=== PATIENT | female | born 1945 | race Caucasian/White ===

== ENCOUNTER 2022-01-20 14:52 | Outpatient (RCR) | payer OTHER, SELFPAY | END 2022-01-24 23:59 | disposition home or self-care (01) | LOC: CCIC 14:52 | PROVIDERS: PCP Family Medicine; Visit Provider Internal Medicine Hematology & Oncology | DX: C50.912 Malignant neoplasm of unspecified site of left female breast (principal); Z17.0 Estrogen receptor positive status [ER+]; R23.2 Flushing; T45.1X5A Adverse effect of antineoplastic and immunosuppressive drugs, initial encounter; M81.0 Age-related osteoporosis without current pathological fracture | CPT/HCPCS: 99212; 99213; 99214 ==

== ENCOUNTER 2022-02-01 12:08 | Emergency (ER) | payer OTHER, SELFPAY ==
[2022-02-01 12:22] VITALS: BP 155/64; PULSE 85; RESP 18; TEMP 36.9; O2SAT 98; BMI 20.6
--- NOTE | 2022-02-01 13:41 | ED_ITS ---
HPI - General Adult General Chief complaint: Fall/Minor Trauma Stated complaint: Fell underneath , back pain Time Seen by Provider: 02/01/22 12:32 Source: patient Mode of arrival: ambulatory Limitations: no limitations History of Present Illness HPI narrative: 76-year-old female coming in today after her fainted and fell on her. She states that she fell onto her buttocks onto the kitchen floor and hit her back against the kitchen cabinet. She did not hit her head or lose consciousness. She was able to get up after she fell. She was however having right-sided low back pain. She denies any loss of bowel or bladder function. She denies any neurologic deficits. She did not trip or fall after she got up. She took some Tylenol and is now feeling better. Related Data Home Medications Medication Instructions Recorded Confirmed acetaminophen 325 mg tablet 650 mg PO Q6H PRN 01/20/22 01/20/22 (Tylenol) alendronate 70 mg tablet 70 mg PO QWEEK 01/20/22 01/20/22 aspirin 81 mg capsule 81 mg PO QDAY 01/20/22 01/20/22 atorvastatin 40 mg tablet 40 mg PO QPM 01/20/22 01/20/22 clonidine HCl 0.1 mg tablet 0.1 mg PO DAILY 01/20/22 01/20/22 lisinopril 40 mg tablet 40 mg PO QDAY 01/20/22 01/20/22 tamoxifen 20 mg tablet 20 mg PO QDAY 01/20/22 01/20/22 Allergies Allergy/AdvReac Type Severity Reaction Status Date / Time seasonal AdvReac Mild Uncoded 02/01/22 12:21 Review of Systems Status of ROS: Reports: 10 or more systems reviewed and unremarkable except as noted in History and below [facility] Medical History HTN (hypertension) Invasive ductal carcinoma of left breast in female (~04/2017) Osteoporosis Surgical History S/P lumpectomy, left breast Exam Narrative: Exam Narrative: Well-nourished well-developed patient in no acute distress. Alert and oriented. Answers questions appropriately. Mood and affect are appropriate. Thoughts are goal oriented and rational. No tangential or magical thinking noted. Patient speaks in full sentences without needing to catch their breath. HEENT: Normocephalic atraumatic. Pupils are equally round reactive to light. Extraocular muscles are intact. Conjunctivae are moist without any icterus noted. Moist mucous membranes. Posterior pharynx is normal. Neck is soft without any lymphadenopathy or thyromegaly. Cardiovascular: Heart is regular rate and rhythm S1 and S2 are present without any murmurs. Lungs: Clear to auscultation bilaterally no wheezes rhonchi or rales are appreciated. Patient takes deep breaths without any discomfort. Abdomen: Soft and nontender nondistended with normal bowel sounds. Extremities: Bilateral lower extremities are without edema. Normal DP and PT pulses. Skin: Well perfused without any obvious rashes. Back: Normal appearance. She has no tenderness to palpation over the cervical thoracic or lumbar spine. She has some tenderness over the paraspinal musculat ure on the right. There is no broken skin, erythema or ecchymosis noted. Strength is 5/5 of the upper and lower extremities. Reflexes are 2+ and symmetric at the knees. Gait is normal. Const: Vital Signs, click to edit/add: Vital Signs - 24 hr 02/01/22 12:22 Temperature 98.4 F Pulse Rate [Pulse Oximeter] 85 Respiratory Rate 18 Blood Pressure [Le ft Upper Arm] 155/64 H Pulse Oximetry 98 Oxygen Delivery Me thod Room Air Course Vital Signs Vital signs: Initial Vital Signs Temperature 98.4 F 02/01/22 12:22 Temperature Source Temporal Artery Scan 02/01/22 12:22 Pulse Rate 85 02/01/22 12:22 Respiratory Rate 18 02/01/22 12:22 Blood Pressure 155/64 H 02/01/22 12:22 Blood Pressure Mean 94 02/01/22 12:22 Pulse Oximetry 98 02/01/22 12:22 Oxygen Delivery Method 02/01/22 12:22 Vital Signs Temperature 98.4 F 02/01/22 12:22 Pulse Rate 85 02/01/22 12:22 Respiratory Rate 18 02/01/22 12:22 Blood Pressure 155/64 H 02/01/22 12:22 Pulse Oximetry 98 02/01/22 12:22 Oxygen Delivery Method 02/01/22 12:22 Temperature 98.4 F 02/01/22 12:22 Pulse Rate 85 02/01/22 12:22 Respiratory Rate 18 02/01/22 12:22 Blood Pressure 155/64 H 02/01/22 12:22 Pulse Oximetry 98 02/01/22 12:22 Oxygen Delivery Method 02/01/22 12:22 Medical Decision Making MDM Narrative Medical decision making narrative: 76-year-old female status post fall contusion to her back. We discussed symptomatic treatment. We discussed that since her exam was fairly benign I do not feel the need for any further imaging at this time and patient was in agreement with this. We discussed reasons to return to the ER. Patient had no other questions Medical Records Medical records reviewed: Yes I reviewed the patient's medical records Discharge Plan Discharge Clinical Impression: Contusion of lower back Patient Disposition: Home, Self-Care Condition: Stable Additional Instructions: Okay to use Tylenol as needed for discomfort. Okay to use ice to lower back today and to try heat tomorrow. Do not apply ice or heat directly to skin. Continue doing gentle stretching exercises. Expect increased soreness tomorrow morning. Prescriptions: No Action atorvastatin 40 mg tablet 40 mg PO QPM clonidine HCl 0.1 mg tablet 0.1 mg PO DAILY acetaminophen [Tylenol] 325 mg tablet 650 mg PO Q6H PRN lisinopril 40 mg tablet 40 mg PO QDAY tamoxifen 20 mg tablet 20 mg PO QDAY alendronate 70 mg tablet 70 mg PO QWEEK aspirin 81 mg capsule 81 mg PO QDAY Follow Up/Referrals: Mathew Camara MD [Primary Care Provider] - Stand Alone Forms: [facility] Info Instructions
== END 2022-02-01 15:00 | disposition home or self-care (01) ==
LOC: ED 14:06
PROVIDERS: Emergency Provider Family Medicine; PCP Family Medicine
DX: S30.0XXA Contusion of lower back and pelvis, initial encounter (principal); W19.XXXA Unspecified fall, initial encounter
CPT/HCPCS: 99282; 99283

== ENCOUNTER 2022-05-12 13:08 | Outpatient (RCR) | payer OTHER, SELFPAY ==
--- NOTE | 2022-07-20 15:19 | ONC.NURNOTE ---
Called pt to review changes in [facility] program and Dr. Haynes's transition to [place], returning to [facility] ~ Spring 2022. Pt is due for f/u 04/2023 with mammogram prior. She will continue care here.
== END 2022-11-08 23:59 | disposition home or self-care (01) ==
LOC: CCIC 13:08
PROVIDERS: PCP Family Medicine; Visit Provider Internal Medicine Hematology & Oncology
DX: C50.912 Malignant neoplasm of unspecified site of left female breast (principal); Z17.0 Estrogen receptor positive status [ER+]; Z79.810 Long term (current) use of selective estrogen receptor modulators (SERMs); R23.2 Flushing; T45.1X5A Adverse effect of antineoplastic and immunosuppressive drugs, initial encounter; M81.0 Age-related osteoporosis without current pathological fracture
CPT/HCPCS: 99212; 99214

== ENCOUNTER 2022-12-10 10:32 | Outpatient (CLI) | payer OTHER, SELFPAY | END 2022-12-10 10:33 | disposition home or self-care (01) | LOC: INJ CL 10:33 | PROVIDERS: PCP Family Medicine; Visit Provider Family Medicine | DX: M54.16 Radiculopathy, lumbar region (principal); M48.062 Spinal stenosis, lumbar region with neurogenic claudication | CPT/HCPCS: 62323; J0702; Q9966 ==

== ENCOUNTER 2023-01-25 10:23 | Outpatient (CLI) | payer OTHER, SELFPAY | END 2023-01-25 10:24 | disposition home or self-care (01) | LOC: INJ CL 10:24 | PROVIDERS: PCP Family Medicine; Visit Provider Family Medicine | DX: M51.36 Other intervertebral disc degeneration, lumbar region (principal); M54.16 Radiculopathy, lumbar region | CPT/HCPCS: 62323; J0702; Q9966 ==

== ENCOUNTER 2023-02-10 14:30 | Outpatient (RCR) | payer OTHER, SELFPAY ==
--- NOTE | 2022-12-07 12:57 | PT.OPDNX ---
PT [place] Outpatient Daily Note PT [facility] Outpatient Daily Note Start: 08/03/22 07:20 Freq: Status: Active Protocol: Document 12/07/22 07:02 FLORA (Rec: 12/07/22 07:03 FLORA [id number]) E-signed By Sunshine Ramirez, PT PT OP Daily Progress Note Visit Information Note Type Daily Note,Recert/Progress Note Visit Number [id number] Insurance Authorized Visits 36 visits good to 02/04/23 Insurance Information Recert Due Date 10/28/22 Insurance Name Medicare B Medical Diagnosis Mechanical back pain Treating Diagnosis Reduced ease of sit to stand Impaired ease of self cares and ADL's Reduced walk/sit tolerances Poor sleeping pattern Constant LBP Referring MD Dr Camara / Jeana Haynes Subjective Subjective Saw Dr Gudino about 2 weeks ago. I am having an epidural steroid injection at [facility] this Tuesday. Then will cont with cortizone and PT. Seeing Dr Gudino for f/u 4 weeks later. My back and hips have actually been feeling pretty good these past few days. Seeing a surgeon in a few weeks. Pain Comments 0-4/10 varies in pain level. Preferred Name Alley Precautions Treatment Precautions/Contraindications Lt Breast CA Osteoporosis Hypertension Weight Bearing Status Full Weight Bearing Objective Other/Pertinent Objective (-) SLR and (-) slump tests jem Patient Instructed in Risks/Benefits Yes Therapeutic Exercise Therapeutic Exercise Minutes (minutes) 39 Therapeutic Exercise: To Restore Client completed tasks of: Functional Status -NuStep level 3 X 6 min -leg press 60# X 50 reps -cc Dbl arm diagonal pull down with core crunch plate 1.5 +. 5 X 20 reps jem -cc hip ext plate 1.5 X 20 reps jem -cc rowing plate 2 X 30 reps -hand to opposite knee forward gait X 20 feet X 2 (added to HEP) -forward lunges alternate Lt/ Rt X 15 reps -rocker board; EO/EC, head turns with VOR activation -partial squat unhinge at hips (near a 21 height chair for safety) X 20 reps -standing hip strategies for 3 min: front/back, Lt/Rt, CW/ CCW, figure 8's. -forward and backward walking heel to toe tandom gait X 10 feet X 3 reps each (added to HEP) -shoulder scaption with 2# weights X 20 reps standing tandom for balance *Prior HEP: -seated hamstring stretch X 2 reps jem -supine bicycle, however, do not extend knees so straight, which caused some very localized LBP. -educated in widening Jarad and staggered stance to improve balance and reduce fall risk with standing and squat. -SLS to improve balance and reduce fall risk. She currently can only stand for average 3 seconds jem. -KTC single and double -LT Rotation -SLR Therapeutic Activity Therapeutic Activities Comments Went through each aspect of her MRI - she has fairly extensive DDD throughout her spine, charlotte Lumbar. Facet narrowing and spinal column impingements. Stable fracture site though. Manual Therapy Techniques Manual Therapy Techniques -prone: we completed light to mod pressure STM to jem T10- sacrum psps and upper glut/SIJ , gentle sacral mobs grade 2. Mm bending and cupping along spine. -In supine gentle long leg distraction (NOT HVLAT, just distraction for traction purposes) and AP sacral mobs. Hip wiggles. Rt SIJ AP mod pressure Treatment Minutes Timed Code Treatment Minutes 39 Total Treatment Time 39 Billing Units Therapeutic Exercise Units 3 Assessment/Impression Assessment/Impression Client is very eager to have her injection this Tuesday. Glad to have options other than surgery. She has been cont with HEP since our last visit s/p 3 weeks. Today she is going grocery shopping by herself after our PT session - this will be the first time in over a year (due to back pain, covid, Dr shay, etc). She did well with gym tasks, reported feeling very tired post session. Rested for 5 min while we discussed post injection details, then walked to her car. Nice progress towards goals, she is cont to gain from PT interventions. Plan of Care Physical Therapy Goals In 4-6 visits, Romy will be able to report the ability to: 1. Make the bed without discomfort greater than 3/10 75% of the time. 2. Sweep floors up to 5 min without pain greater than 3/10 75% of the time. 3. Sit to stand without pain greater than 3/10 75% of the time In 10-12 visits, Romy will be able to report the ability to: 1. IND in proper execution of HEP with emphasis on pace, reps and HOLD times 2. Sleep without the use of lumbar support, up to 4 hours without awakening due to pain greater than 3/10 90% of the time. 3. Resume maintaining 5,000 steps per day for exercises ( this was her average before her fall) Daily Plan of Care Continue per POC Daily Plan of Care Comments Progress with pelvic stability and core strength in neutral. Progress to gym tasks as able Recertification Information Initial Certification Date 08/03/22 Recertification Start Date 12/07/22 Recertification Due Date 02/04/23 Reasons to Continue Skilled Therapy Cont to have LBP, reduced ease of standing/walking, lower endurance Rehabilitation Potential Good Continued Plan of Care and Interventions Cont with gym routine and progressive home stretch/ strengthening and balance/ endurance activities to promote goal acquisition. Pelvic and trunk stability routine in neutral. Provider Signature Shows Agreement With POC & Medical Necessity Physician Comment/Change Comment or Changes Physician NPI Number #
--- NOTE | 2023-02-10 15:07 | PT.OPDNX ---
PT [place] Out[facility] Daily Note PT [facility] Daily Note Start: 08/03/22 07:20 Freq: Status: Active Protocol: Document 02/10/23 14:15 FLORA (Rec: 02/10/23 15:07 FLORA [id number]) E-signed By Sunshine Ramirez, PT PT OP Daily Progress Note Visit Information Note Type Daily Note,Recert/Progress Note,Discharge Note Visit Number [id number] Insurance Authorized Visits 36 visits good to 02/04/23 Insurance Information Recert Due Date 02/04/23 Insurance Name Medicare B Medical Diagnosis Mechanical back pain Treating Diagnosis Reduced ease of sit to stand Impaired ease of self cares and ADL's Reduced walk/sit tolerances Poor sleeping pattern Constant LBP Referring MD Dr Camara / Jeana Haynes Subjective Subjective I had my second injection January 25, just 2 days ago. Injection site was a bit lower , more where the pain was localizing at. I have done my exercises and ice today. Walking is going fine. Saw the surgeon in on Feb 07. I have a vertebral fracture. Surgery is out of the question . It has healed a bit crooked and flat. He wants me to cont with strengthening my legs. He encouraged me to cont wtih Dr Gudino and the injections every 4-[address] Gudino again Mar 09. Sleeping good with the sleeping pill and a couple of tylenol. Get up at about 1.30 and 5:30 but can go back to sleep again. Wake up to use the bathroom vs awakening due to pain. Pain Comments 0-4/10 varies in pain level. I can normally lay down and do some hip wiggle exercise and the pain resolves. Pain just on the left side. 2/10 today Preferred Name Alley Precautions Treatment Precautions/Contraindications Lt Breast CA Osteoporosis Hypertension Weight Bearing Status Full Weight Bearing Objective Other/Pertinent Objective (-) SLR and (-) slump tests jem Patient Instructed in Risks/Benefits Yes Therapeutic Exercise Therapeutic Exercise Minutes (minutes) 40 Therapeutic Exercise: To Restore Compiled and educated client Functional Status in ongoing HEP, given HO: -Bridge X 10 reps HOLD 4 sec -supine hook lying hip ABD with GTB X 20 reps -sit back squat X 20 reps HOLD 4 sec -standing hip EXT/ABD combo X 20 reps -Dbl heel raises X 20 reps -SLS X 20 sec -forward gait hand to opposite knee -rowing with GTB X 20 reps -Forward lunge alternate Lt / Rt legs Therapeutic Activity Therapeutic Activities Comments Went through each aspect of her MRI - she has fairly extensive DDD throughout her spine, charlotte Lumbar. Facet narrowing and spinal column impingements. Stable fracture site though. Manual Therapy Techniques Manual Therapy Techniques -prone: we completed light to mod pressure STM to jem T10- sacrum psps and upper glut/SIJ , gentle sacral mobs grade 2. More time on Lt side today. -In supine gentle long leg distraction (NOT HVLAT, just distraction for traction purposes) and AP sacral mobs. Hip wiggles. Rt SIJ AP mod pressure Treatment Minutes Timed Code Treatment Minutes 40 Total Treatment Time 40 Billing Units Therapeutic Exercise Units 3 Assessment/Impression Assessment/Impression Client had her second injection s/p 2 weeks, doing well. She is moving very nicely and increased ease of sit to stand and on/off equipment in the gym. She is still going to cont with LE strength and core/posture activation to stabilize her back and support her trunk. Cont to see Dr Gudino. This will be her last session. She is IND in her HEP and is compliant with program. She did not want to join a fitness club. Plan of Care Physical Therapy Goals In 4-6 visits, Romy will be able to report the ability to: 1. Make the bed without discomfort greater than 3/10 75% of the time. 2. Sweep floors up to 5 min without pain greater than 3/10 75% of the time. 3. Sit to stand without pain greater than 3/10 75% of the time In 10-12 visits, Romy will be able to report the ability to: 1. IND in proper execution of HEP with emphasis on pace, reps and HOLD times 2. Sleep without the use of lumbar support, up to 4 hours without awakening due to pain greater than 3/10 90% of the time. 3. Resume maintaining 5,000 steps per day for exercises ( this was her average before her fall) Daily Plan of Care Discharge Daily Plan of Care Comments Progress with pelvic stability and core strength in neutral. Progress to gym tasks as able Recertification Information Initial Certification Date 08/03/22 Recertification Start Date 02/10/23 Recertification Due Date 05/07/23 Reasons to Continue Skilled Therapy Compile HEP so client can cont on her own with trunk stability and LE strength. Encouraged to frequently A/D stairs at home for ex/ endurance as well. Rehabilitation Potential Good Continued Plan of Care and Interventions This will be her last session Provider Signature Shows Agreement With POC & Medical Necessity Physician Comment/Change Comment or Changes Physician NPI Number #
== END 2023-06-10 23:59 | disposition home or self-care (01) ==
PROVIDERS: PCP Family Medicine; Visit Provider Family Medicine
DX: M54.9 Dorsalgia, unspecified (principal); Z51.89 Encounter for other specified aftercare
CPT/HCPCS: 97110; 97140; 97162; 97530

== ENCOUNTER 2023-04-13 13:28 | Emergency (ER) | payer OTHER, SELFPAY ==
[2023-04-13 13:41] VITALS: BP 174/60; PULSE 81; RESP 17; TEMP 36.8; O2SAT 99; BMI 20.7
[2023-04-13 14:06] LABS: Appearance Urine Clear (Clear); Bilirubin Urine Negative (Negative); Blood Urine Negative (Negative); Color Urine Yellow (Yellow); Glucose Urine Negative (Negative); Ketones Urine Negative (Negative); Leukocyte Esterase Urine Negative (Negative); Nitrite Urine Negative (Negative); Protein Urine Negative (Negative); Urobilinogen Urine 0.2 (0.2-1.0); pH Urine 7.5 (5.0-8.5)
--- NOTE | 2023-04-13 14:19 | ED_ITS ---
HPI - General Adult General Time Seen by Provider: 14:19 Date Seen: 04/13/23 Chief complaint: Unspecified Complaint, Adult Stated complaint: Low NA Time Seen by Provider: 04/13/23 13:48 Source: patient Mode of arrival: ambulatory Limitations: no limitations History of Present Illness HPI narrative: Patient is a very pleasant 77-year-old female who has had compression fractures in her back, she has been deemed non operative candidate. She was following up with Dr. Camara and had some blood work done. Her sodiums been running a little bit low. She reports to me that she is drinking 6-8 16 to 18 oz glasses of water a day. She states she does this because her mouth gets dry and she goes to the bathroom regularly her states. He reports that she drinks water nonstop throughout the day. She has no chest pain in his asymptomatic at present Related Data Home Medications Medication Instructions Recorded Confirmed acetaminophen 325 mg tablet 650 mg PO Q6H PRN 01/20/22 05/12/22 (Tylenol) alendronate 70 mg tablet 70 mg PO QWEEK 01/20/22 05/12/22 atorvastatin 40 mg tablet 40 mg PO QPM 01/20/22 05/12/22 clonidine HCl 0.1 mg tablet 0.1 mg PO DAILY 01/20/22 05/12/22 lisinopril 40 mg tablet 40 mg PO QDAY 01/20/22 05/12/22 Allergies Allergy/AdvReac Type Severity Reaction Status Date / Time hydrochlorothiazide Allergy Verified 01/25/23 11:07 seasonal AdvReac Mild Uncoded 01/25/23 11:07 Review of Systems Status of ROS: Reports: 6 or more systems reviewed and unremarkable except as noted in History and below [facility] Medical History Osteoporosis ?M81.0 - Age-related osteoporosis without current pathological fracture (ICD- 10) HTN (hypertension) ?I10 - Essential (primary) hypertension (ICD-10) Invasive ductal carcinoma of left breast in female (~04/2017) ?C50.912 - Malignant neoplasm of unspecified site of left female breast (ICD- 10) Surgical History S/P lumpectomy, left breast ?Z98.890 - Other specified postprocedural states (ICD-10) Social History Smoking Status: Never smoker Non-prescribed substance use: denies use Exam Narrative: Exam Narrative: Objective: Patient's mental status is appropriate Her blood pressure shows slight elevation of systolic at 174 Neurologic appears grossly nonfocal. Const: Vital Signs, click to edit/add: Vital Signs - 24 hr 04/13/23 13:41 Temperature 98.2 F Pulse Rate [Pulse Oximeter] 81 Respiratory Rate 17 Blood Pressure [Ri ght Upper Arm] 174/60 H Pulse Oximetry 99 Oxygen Delivery Me thod Room Air Course Vital Signs Vital signs: Initial Vital Signs Temperature 98.2 F 04/13/23 13:41 Temperature Source Temporal Artery Scan 04/13/23 13:41 Pulse Rate 81 04/13/23 13:41 Respiratory Rate 17 04/13/23 13:41 Blood Pressure 174/60 H 04/13/23 13:41 Blood Pressure Mean 98 04/13/23 13:41 Pulse Oximetry 99 04/13/23 13:41 Oxygen Delivery Method Room Air 04/13/23 13:41 Vital Signs Temperature 98.2 F 04/13/23 13:41 Pulse Rate 81 04/13/23 13:41 Respiratory Rate 17 04/13/23 13:41 Blood Pressure 174/60 H 04/13/23 13:41 Pulse Oximetry 99 04/13/23 13:41 Oxygen Delivery Method Room Air 04/13/23 13:41 Temperature 98.2 F 04/13/23 13:41 Pulse Rate 81 04/13/23 13:41 Respiratory Rate 17 04/13/23 13:41 Blood Pressure 174/60 H 04/13/23 13:41 Pulse Oximetry 99 04/13/23 13:41 Oxygen Delivery Method Room Air 04/13/23 13:41 Medical Decision Making MDM Narrative Medical decision making narrative: 77-year-old female with low-sodium unlikely water intoxication. The patient does drink a copious amount of water each day for her size. I at this point I would recommend we recheck her CBC and Chem profile and if she again runs a mid 20 sodium level given that her mental status is appropriate and she is ambulatory in no neurologic deficit, I think that simply water restriction be appropriate and she can drink up to 4 cups of water a day for the next few days and then should get a repeat sodium done. She thinks she can accomplish this. She has not been on any medication medicines that appear to lower sodium. Addendum: Patient has hemoglobin 8.5 this needs to be worked up in the clinic, she denies any bleeding or vomiting blood or black stools. She has a sodium that is 123. This is 1 point higher than yesterday. I discussed with our hospitalist whether admission or treatment be appropriate at this point given her water intake they think water restriction be the appropriate thing to do at this time and I would agree will limit her to four cups of liquid per day, recheck the sodium and hemoglobin in the next few days with Primary Care. Will set up an appointment for her. Lab Data Labs: Lab Results 04/13/23 04/13/23 Range/Units 13:55 14:33 WBC 6.47 (4.50-11.00) K/uL RBC 3.33 L (4.00-5.20) m/uL Hgb 8.5 L (12.0-16.0) gm/dL Hct 26.9 L (33.0-51.0) % MCV 81 (80-100) fL MCH 26 (26-34) pg MCHC 32 (32-36) gm/dL RDW Coeff of Gurjit 13.9 (11.5-15.5) % Plt Count 624 H (140-440) K/uL Neut % (Auto) 58.8 (42.0-72.0) % Lymph % (Auto) 28.1 (20-44) % Lea % (Auto) 11.4 H (0.0-11.0) % Eos % (Auto) 1.1 (0.0-7.0) % Baso % (Auto) 0.6 (0.0-3.0) % Neut # (Auto) 3.80 (1.7-7.0) K/uL Lymph # (Auto) 1.82 (0.90-2.90) K/uL Lea # (Auto) 0.70 (0.00-0.90) K/UL Eos # (Auto) 0.07 (0.00-0.50) K/uL Baso # (Auto) 0.04 (0.00-0.30) K/uL Abs Immat Gran (auto) 0.00 (0.00-0.30) K/uL Imm/Tot Granulo (auto) 0.0 % Sodium 123 L* (135-149) mmol/L Potassium 4.7 (3.6-5.1) mmol/L Chloride 89 L (96-114) mmol/L Carbon Dioxide 24 (20-32) mmol/L Anion Gap 10 (7-15) mEq/L BUN 9 (7-30) mg/dL Creatinine 0.5 (0.5-1.5) mg/dL Estimated Creat Clear 32.40 Estimated GFR 95 ml/min Glucose 88 (60-115) mg/dL Calcium 9.3 (8.4-10.6) mg/dL Urine Color Yellow (Yellow) Urine Appearance Clear (Clear) Urine pH 7.5 (5.0-8.5) Ur Specific [place] 1.010 (1.000-1.030) Urine Protein Negative (Negative) Urine Glucose (UA) Negative (Negative) Urine Ketones Negative (Negative) Urine Blood Negative (Negative) Urine Nitrite Negative (Negative) Urine Bilirubin Negative (Negative) Urine Urobilinogen 0.2 (0.2-1.0) Ur Leukocyte Esterase Negative (Negative) Urine RBC 0-2 (0-2) Urine WBC 0-2 (0-5) Ur Squamous Epith Cells Few (None-Few) Other Sediment FEW YEAST (None) Urine Bacteria None (None) Discharge Plan Discharge Clinical Impression: Acute hyponatremia, Water intoxication Patient Disposition: Home w/ Parent or Adult Condition: Stable Additional Instructions: Limit your water intake to 4 cups of liquid a day for the next several days, continue home medications, recommend you recheck his sodium level with your primary care clinic in the next 3-4 days. Return to ED sooner problems concerns or difficulty. He also of anemia and should talk to your doctor about that in your follow-up visit. Activity Level: Light activity Discharge Diet: Regular Prescriptions: No Action atorvastatin 40 mg tablet 40 mg PO QPM clonidine HCl 0.1 mg tablet 0.1 mg PO DAILY acetaminophen [Tylenol] 325 mg tablet 650 mg PO Q6H PRN lisinopril 40 mg tablet 40 mg PO QDAY alendronate 70 mg tablet 70 mg PO QWEEK Follow Up/Referrals: Mathew Camara MD [Primary Care Provider] - Stand Alone Forms: [facility] Info Instructions
[2023-04-13 14:39] LABS: Basophils Absolute Auto 0.04 K/uL (0.00-0.30); Basophils Percent Auto 0.6 % (0.0-3.0); Eosinophils Absolute Auto 0.07 K/uL (0.00-0.50); Eosinophils Percent Auto 1.1 % (0.0-7.0); Hematocrit 26.9 % (33.0-51.0); Hemoglobin* 8.5 gm/dL (12.0-16.0); Lymphocytes Absolute Auto 1.82 K/uL (0.90-2.90); Lymphocytes Percent Auto 28.1 % (20-44); Mean Corpuscular HGB Conc 32 gm/dL (32-36); Mean Corpuscular Hemoglobin 26 pg (26-34); Mean Corpuscular Volume 81 fL (80-100); Monocytes Percent Auto 11.4 % (0.0-11.0); Neutrophils Percent Auto 58.8 % (42.0-72.0); Platelet Count* 624 K/uL (140-440); RDW Coefficient of Variation % 13.9 % (11.5-15.5); Red Blood Count 3.33 m/uL (4.00-5.20); White Blood Count* 6.47 K/uL (4.50-11.00)
[2023-04-13 14:47] LABS: Slide Review Reflex No
[2023-04-13 14:49] LABS: Other Sediment Urine FEW YEAST; RBC Urine 0-2 (0-2); Squamous Epithelial Cell Urine Few (None-Few); WBC Urine 0-2 (0-5)
[2023-04-13 14:51] LABS: Chloride* 89 mmol/L (96-114); Potassium* 4.7 mmol/L (3.6-5.1)
[2023-04-13 14:54] LABS: Anion Gap 10 mEq/L (7-15); Blood Urea Nitrogen* 9 mg/dL (7-30); Carbon Dioxide* 24 mmol/L (20-32); Creatinine* 0.5 mg/dL (0.5-1.5); Estimated Glomerular Filt Rate 95 ml/min
[2023-04-13 14:55] LABS: Calcium* 9.3 mg/dL (8.4-10.6); Glucose* 88 mg/dL (60-115)
[2023-04-13 15:03] LABS: Sodium* 123 mmol/L (135-149)
== END 2023-04-13 15:31 | disposition home or self-care (01) ==
PROVIDERS: Emergency Provider Family Medicine; PCP Family Medicine
DX: E87.1 Hypo-osmolality and hyponatremia (principal); E87.79 Other fluid overload
CPT/HCPCS: 36415; 80048; 81001; 85025; 87086; 99283; 99284

== ENCOUNTER 2023-05-23 13:35 | Outpatient (RCR) | payer OTHER, SELFPAY | END 2023-11-19 23:59 | disposition home or self-care (01) | LOC: CCIC 13:35 | PROVIDERS: PCP Family Medicine; Visit Provider Physician Assistant | DX: C50.912 Malignant neoplasm of unspecified site of left female breast (principal); Z17.0 Estrogen receptor positive status [ER+]; D50.9 Iron deficiency anemia, unspecified; M81.0 Age-related osteoporosis without current pathological fracture; S32.010A Wedge compression fracture of first lumbar vertebra, initial encounter for closed fracture | CPT/HCPCS: 99212; 99214 ==

== ENCOUNTER 2023-06-07 10:16 | Outpatient (CLI) | payer OTHER, SELFPAY | END 2023-06-07 10:17 | disposition home or self-care (01) | LOC: INJ CL 10:17 | PROVIDERS: PCP Family Medicine; Visit Provider Family Medicine | DX: M51.36 Other intervertebral disc degeneration, lumbar region (principal); M54.16 Radiculopathy, lumbar region | CPT/HCPCS: 62323; J0702; Q9966 ==

== ENCOUNTER 2023-08-15 12:35 | Outpatient (CLI) | payer OTHER, SELFPAY ==
--- NOTE | 2023-08-15 14:20 | W.ANESCHARGE ---
Anesthesia Charges Start Date/Time Anesthesia Start Date: 08/15/23 Anesthesia Start Time: 14:35 Stop Date/Time Anesthesia Stop Date: 08/15/23 Anesthesia Stop Time: 15:09 Summary Extremes of Age - Over 70 or under 1: MDA
--- NOTE | 2023-08-15 15:14 | P.ANES_ITS ---
Anesthesia Charges Start Date/Time Anesthesia Start Date: 08/15/23 Anesthesia Start Time: 14:35 Stop Date/Time Anesthesia Stop Date: 08/15/23 Anesthesia Stop Time: 15:09 Summary Extremes of Age - Over 70 or under 1: [employer]
== END 2023-08-15 12:36 | disposition home or self-care (01) ==
LOC: OP CLINIC 12:35
PROVIDERS: PCP Family Medicine; Visit Provider Internal Medicine Gastroenterology
DX: D50.9 Iron deficiency anemia, unspecified (principal); K57.30 Diverticulosis of large intestine without perforation or abscess without bleeding
CPT/HCPCS: 00813; 43239; 45378; 88305; 88342; 99100; J2704

== ENCOUNTER 2023-09-16 09:59 | Outpatient (CLI) | payer OTHER, SELFPAY | END 2023-09-16 10:00 | disposition home or self-care (01) | LOC: INJ CL 09:59 | PROVIDERS: PCP Family Medicine; Visit Provider Family Medicine | DX: M54.16 Radiculopathy, lumbar region (principal); M51.36 Other intervertebral disc degeneration, lumbar region | CPT/HCPCS: 62323; J0702; Q9966 ==

== ENCOUNTER 2023-10-12 23:35 | Emergency (ER) | payer OTHER, SELFPAY ==
[2023-10-13] VITALS (8 sets, daily range): BP systolic 181–221; BP diastolic 92–97; PULSE 81–102; RESP 16; TEMP 37.1; O2SAT 97–98; BMI 20.5
--- NOTE | 2023-10-13 01:03 | ED_ITS ---
HPI - General Adult General Chief complaint: Back Injury/Pain Stated complaint: leg and back pain/weakness Time Seen by Provider: 10/13/23 00:39 Source: patient and family Mode of arrival: ambulatory History of Present Illness HPI narrative: 78-year-old female with known history of compression fracture in her back and ongoing issues with osteoarthritis presents to the emergency department for evaluation of worsening back pain. Patient reports that she has undergone a series of steroid injections by Dr. Rothman. Most recent was about 1 month ago. Reports that the 1st 3 injections had been helpful but the most recent 1 performed a month ago did not seem to improve her pain and actually seems to be worsening. I have very limited records as she is seen through a different [facility]. She has no new trauma or injury, no fevers or recent illness. Has tried Tylenol at home for her pain with no improvement. Initially stated that she has no other modalities to control her pain. When I asked to see her medication list. I inquire about the gabapentin listed. She tells me then that she was started on gabapentin 100 mg at bedtime a few weeks ago, it has not yet been titrated. She has a history of high blood pressure, is prone to erratic levels. She does have clonidine prescribed in addition to her baseline lisinopril. Denies any recent missed doses. She states that she was prescribed a medication about 2 weeks ago, completing a little over a week ago. By her description, it sounds like this was a Medrol Dosepak. Reports that it was very successful in improving her pain for the 1st few days but since she has tapered down on the medication, it has not been as effective. Has been concerned that it is now difficult to help her around the house and she is starting to have some weakness. Her legs feel shaky and wobbly. This is not new tonight but has rather been progressive over the past month. They have been in communication with their medical team regarding this. Pain is mainly coming from the low back area and radiating down to the anterior thighs, right greater than left. This is also not new. Reports that she has had x-rays and MRIs, I do not have immediate access to those. Has not tried any other interventions besides the Tylenol tonight to help with her pain. concerned that it is difficult to help around the house but they have not tried a walker or wheelchair. She is not currently in any type of physical therapy. Past medical history notable for hypertension, remote breast cancer, osteoporosis. Described as compression fracture at L1 in the records, uncertain of osteoarthritis status. Nonsmoker. No recent pertinent social changes. ROS notable for the musculoskeletal and neurological changes as described above, otherwise denies times 12 systems. Related Data Home Medications Medication Instructions Recorded Confirmed acetaminophen 325 mg tablet 650 mg PO Q6H PRN 01/20/22 05/12/22 (Tylenol) alendronate 70 mg tablet 70 mg PO QWEEK 01/20/22 05/12/22 atorvastatin 40 mg tablet 40 mg PO QPM 01/20/22 05/12/22 clonidine HCl 0.1 mg tablet 0.1 mg PO DAILY 01/20/22 05/12/22 lisinopril 40 mg tablet 40 mg PO QDAY 01/20/22 05/12/22 Previous Rx's Medication Instructions Recorded gabapentin 300 mg capsule 300 mg PO QHS #30 caps 10/13/23 prednisone 10 mg tablet 10 mg PO DIRECTED #30 tabs 10/13/23 tramadol 50 mg tablet 50 mg PO TID PRN pain #10 tabs 10/13/23 Allergies Allergy/AdvReac Type Severity Reaction Status Date / Time hydrochlorothiazide Allergy Verified 05/23/23 14:15 mirtazapine Allergy Verified 06/07/23 10:47 seasonal AdvReac Mild Uncoded 01/25/23 11:07 [facility] Medical History Osteoporosis ?M81.0 - Age-related osteoporosis without current pathological fracture (ICD- 10) HTN (hypertension) ?I10 - Essential (primary) hypertension (ICD-10) Invasive ductal carcinoma of left breast in female (~04/2017) ?C50.912 - Malignant neoplasm of unspecified site of left female breast (ICD- 10) Surgical History S/P lumpectomy, left breast ?Z98.890 - Other specified postprocedural states (ICD-10) Social History Smoking Status: Never smoker How often do you have a drink containing alcohol: never AUDIT-C Alcohol total score: 0 Non-prescribed substance use: denies use Exam Const: Vital Signs, click to edit/add: Vital Signs - 24 hr 10/13/23 00:13 10/13/23 00:22 10/13/23 00:30 Temperature 98.7 F Pulse Rate 98 102 H Pulse Rate [Pulse Oximeter] 96 Respiratory Rate 16 Blood Pressure Blood Pressure [Ri ght Upper Arm] 203/97 H Pulse Oximetry 98 97 98 Oxygen Delivery Me thod Room Air 10/13/23 00:31 10/13/23 00:45 10/13/23 01:00 Temperature Pulse Rate 97 94 100 Pulse Rate [Pulse Oximeter] Respiratory Rate Blood Pressure 221/92 H Blood Pressure [Ri ght Upper Arm] Pulse Oximetry 98 97 98 Oxygen Delivery Me thod 10/13/23 01:01 Temperature Pulse Rate 102 H Pulse Rate [Pulse Oximeter] Respiratory Rate Blood Pressure 210/96 H Blood Pressure [Ri ght Upper Arm] Pulse Oximetry 98 Oxygen Delivery Me thod Documenting provider has reviewed patient's vital signs: yes Other: Appears uncomfortable but nontoxic. No signs of new trauma or injury. HENMT: Common normals: normocephalic and oropharynx normal Head and scalp: normocephalic Mouth: oral and palatal mucosa normal Eye: Common normals: conjunctivae normal General eye: normal appearance of both eyes Conjunctiva: conjunctiva(e) normal Neck & C-Spine: Common normals: full ROM General: normal visual inspection Resp: Common normals: normal respiratory effort and clear to auscultation bilaterally Effort & inspection: able to speak in complete sentences Auscultation: clear to auscultation bilaterally Cardio: Common normals: regular rate, regular rhythm, S1 normal heart sound, S2 normal heart sound and no murmurs Rate: regular rate Rhythm: regular rhythm Heart sounds: S1 normal and S2 normal GI: Other: Normal to inspection, nondistended. Back & Pelvis: Other: Pain increased with flexion. Limited exam due to patient declining participation due to pain. There is no obvious ecchymosis or signs of acute trauma. I do not detect any new step-offs but she is tender along T10 through all the lower lumbar area but not really on the bones, more paraspinal. This was a very limited exam. Neuro: Other: Sensation is intact to both lower legs, equally, thighs, calves, tibia and feet. She has normal flexion and extension of both feet, normal proximal muscle strength at the thighs to flexion and extension. 5/5. Psych: Attitude: engaged Other: Mild memory impairment but can be easily dog with asking questions and cues from her medication list, history. Course Course ED Course: Acute on chronic low back pain with no known mechanism. No new injury or trauma. Recent successful steroid taper, symptoms have rebounded since this has been discontinued. Gabapentin recently started and would benefit from titration. Patient will likely need to consider assistive and adaptive devices to help with ambulation due to her chronic condition. I am not detecting any new signs of spinal cord injury at this time. Will start with 40 mg of prednisone, 5 of oxycodone, 25 of Vistaril and 300 of gabapentin. Due to her elevated blood pressure and her frustration with the blood pressure cuff going off, will also go ahead and dose her clonidine, then re-evaluated in about an hour. Will need test of ambulation and will likely benefit from a walker or other assistive device. Counseled that she will need primary care or spine team follow-up for long-term management as this is a temporary plan to help with her pain. Will obtain some basic labs to ensure that her weak legs are not secondary to electrolyte abnormality, renal function issues, etc.. Reevaluation(s) Time of Reevaluation #1: 02:41 Reevaluation #1: Patient reporting improvement in her pain but is feeling a little sleepy from the medications which is of course expected. Trial of ambulation with walker performed. She is observed ambulating from the bathroom, feeling much better. Counseled family that I think she should go back on a steroid burst as this was very helpful for her before. She will need to be in close communication with her primary care team regarding side effects, taper and her clinical response. She will call them with an update in 24 hours. Will increase her gabapentin to 300 at bedtime, continuing on the 100 mg in the afternoon. Limited supply of tramadol given for severe pain. Will send home with walker, counseled that she should have a wheelchair available at home for when her symptoms are very bothersome. She tells me that she actually is scheduled to start physical therapy in 3 weeks. This is great news. Alarm symptoms reviewed that would warrant ED presentation including severe weakness, neurological changes. Ongoing pain issue should be brought up to her primary care team. She verbalizes understanding and agreement. Written instructions provided. Supply of tramadol from vending machine for overnight use. Vital Signs Vital signs: Initial Vital Signs Temperature 98.7 F 10/13/23 00:13 Temperature Source Temporal Artery Scan 10/13/23 00:13 Pulse Rate 96 10/13/23 00:13 Respiratory Rate 16 10/13/23 00:13 Blood Pressure 203/97 H 10/13/23 00:13 Blood Pressure Mean 132 H 10/13/23 00:13 Blood Pressure Position Semi-Fowlers 10/13/23 00:13 Pulse Oximetry 98 10/13/23 00:13 Oxygen Delivery Method Room Air 10/13/23 00:13 Vital Signs Temperature 98.7 F 10/13/23 00:13 Pulse Rate 96 10/13/23 00:13 Respiratory Rate 16 10/13/23 00:13 Blood Pressure 203/97 H 10/13/23 00:13 Pulse Oximetry 98 10/13/23 00:13 Oxygen Delivery Method Room Air 10/13/23 00:13 Temperature 98.7 F 10/13/23 00:13 Pulse Rate 102 H 10/13/23 01:01 Respiratory Rate 16 10/13/23 00:13 Blood Pressure 210/96 H 10/13/23 01:01 Pulse Oximetry 98 10/13/23 01:01 Oxygen Delivery Method Room Air 10/13/23 00:13 Medications Administered Medications: Discontinued Medications Generic Name Dose Route Start Last Admin Trade Name Bernie PRN Reason Stop Dose Admin Clonidine HCl 0.1 mg 10/13/23 01:07 10/13/23 01:19 Clonidine Hcl 0.1 Mg Tablet PO 10/13/23 01:08 0.1 mg ONCE ONE Administration Gabapentin 300 mg 10/13/23 01:02 10/13/23 01:19 Gabapentin 300 Mg Capsule PO 10/13/23 01:03 300 mg ONCE ONE Administration Hydroxyzine Pamoate 25 mg 10/13/23 01:01 10/13/23 01:19 Hydroxyzine Pamoate 25 Mg Capsule PO 10/13/23 01:02 25 mg ONCE ONE Administration Oxycodone HCl 5 mg 10/13/23 01:01 10/13/23 01:19 Oxycodone 5 Mg Tablet PO 10/13/23 01:02 5 mg ONCE ONE Administration Prednisone 40 mg 10/13/23 01:02 10/13/23 01:19 Prednisone 20 Mg Tablet PO 10/13/23 01:03 40 mg ONCE ONE Administration Medical Decision Making Lab Data Lab results reviewed: Yes I reviewed the patient's lab results Lab results narrative: Sodium low but at patient baseline. Reviewed from a liner records, runs 123- 130. Labs: Lab Results 10/13/23 Range/Units 01:15 WBC 7.15 (4.50-11.00) K/uL RBC 3.73 L (4.00-5.20) m/uL Hgb 11.0 L (12.0-16.0) gm/dL Hct 33.5 (33.0-51.0) % MCV 90 (80-100) fL MCH 30 (26-34) pg MCHC 33 (32-36) gm/dL RDW Coeff of Gurjit 13.9 (11.5-15.5) % Plt Count 502 H (140-440) K/uL Neut % (Auto) 59.4 (42.0-72.0) % Lymph % (Auto) 28.8 (20-44) % [place] % (Auto) 9.2 (0.0-11.0) % Eos % (Auto) 1.7 (0.0-7.0) % Baso % (Auto) 0.6 (0.0-3.0) % Neut # (Auto) 4.25 (1.7-7.0) K/uL Lymph # (Auto) 2.06 (0.90-2.90) K/uL [place] # (Auto) 0.70 (0.00-0.90) K/UL Eos # (Auto) 0.12 (0.00-0.50) K/uL Baso # (Auto) 0.04 (0.00-0.30) K/uL Abs Immat Gran (auto) 0.02 (0.00-0.30) K/uL Imm/Tot Granulo (auto) 0.3 % Sodium 125 L (135-149) mmol/L Potassium 4.2 (3.6-5.1) mmol/L Chloride 96 (96-114) mmol/L Carbon Dioxide 22 (20-32) mmol/L Anion Gap 7 (7-15) mEq/L BUN 19 (7-30) mg/dL Creatinine 0.5 (0.5-1.5) mg/dL Estimated Creat Clear 31.49 Estimated GFR 95 ml/min Glucose 114 (60-115) mg/dL Calcium 9.2 (8.4-10.6) mg/dL C-Reactive Protein < 0.5 L (0.5-1.0) mg/dL Discharge Plan Discharge Clinical Impression: Lumbar radiculopathy Patient Disposition: Home w/ Parent or Adult Condition: Improved Instructions: Lumbar Radiculopathy (ED) Additional Instructions: As we discussed, I do not see any signs of a new problem in your back, rather a flare up of your ongoing issues. I am sorry that the last steroid injection was not more effective for you. Is important that you follow-up with Dr. Gudino's team on Tuesday with an update on how the plan that I will outline below is going. For pain, continue taking Tylenol 1000 mg 3 times daily. Take this automatically even if you are not feeling pain for at least the next couple of weeks. I have restarted an oral steroid since this was initially helpful for you. You will take prednisone 30 mg daily for 5 days, then 20 mg daily for 5 days, then 10 mg daily for 5 days. Make sure you take the medicine with food. This may irritate your stomach. If you are noticing stomach irritation, please also take an [id number]-[id number] stomach acid medicine like famotidine or omeprazole daily. This will take a couple of days to kick in fully. Once it does, I am hoping that you need the stronger pain medications outlined below even less. Continue using the gabapentin that you have been prescribed, once daily in the late morning. This will be the 100 mg dose. I have given you a prescription for 300 mg pills to take at bedtime. Nerve pain is typically more bothersome in the evenings. If this regimen is not as effective for you, I gave you permi ssion to increase the 100 mg pills to morning and afternoon, continuing on the 300 mg in the evening. You will need to update your primary care team if you need refills or further titration. This is still a relatively small dose. I have given you a small supply of tramadol, a mild narcotic that you can take up to 3 times daily if the pain is severe. I am hoping that you will not need these after a couple of days. I have sent a refill to the pharmacy but have given you a small supply to use from the vending machine in the lobby in case you need another dose before the pharmacies open in the morning. Try to use these sparingly and wean off as soon as you are able. It is important that you start having a plan for how you will get around on the days where your pain is more bothersome. I agree that I want you to stay as active as possible but you need to have a walker available at home and potentially will need a wheelchair at some point. Use these when you are unsafe to get around without help. Keep the appointments for physical therapy as you already have planned. Activity Level: Activity as Tolerated Discharge Diet: Regular Prescriptions: New prednisone 10 mg tablet 10 mg PO DIRECTED Qty: 30 0RF Rx Instructions: Three pills by mouth daily with food for 5 days, then 2 pills by mouth daily for 5 days, then 1 pill daily till gone tramadol 50 mg tablet 50 mg PO TID PRN (Reason: pain) Qty: 10 0RF gabapentin 300 mg capsule 300 mg PO QHS Qty: 30 2RF No Action atorvastatin 40 mg tablet 40 mg PO QPM clonidine HCl 0.1 mg tablet 0.1 mg PO DAILY acetaminophen [Tylenol] 325 mg tablet 650 mg PO Q6H PRN lisinopril 40 mg tablet 40 mg PO QDAY alendronate 70 mg tablet 70 mg PO QWEEK Follow Up/Referrals: Mtahew Camara MD [Primary Care Provider] - Stand Alone Forms: [employer] Info Instructions
[2023-10-13] MEDS: hydrOXYzine pamoate 25 MG CAPSULE PO (01:19)
[2023-10-13] MEDS: OXYCODONE 5 MG TABLET PO (01:19)
[2023-10-13] MEDS: GABAPENTIN 300 MG CAPSULE PO (01:19)
[2023-10-13] MEDS: cloNIDine HCL 0.1 MG TABLET PO (01:19)
[2023-10-13] MEDS: predniSONE 20 MG TABLET 40 MG PO (01:19)
[2023-10-13 01:28] LABS: Basophils Absolute Auto 0.04 K/uL (0.00-0.30); Basophils Percent Auto 0.6 % (0.0-3.0); Eosinophils Absolute Auto 0.12 K/uL (0.00-0.50); Eosinophils Percent Auto 1.7 % (0.0-7.0); Hematocrit 33.5 % (33.0-51.0); Immature Granulocytes Abs Auto 0.02 K/uL (0.00-0.30); Immature Granulocytes Pct Auto 0.3 %; Lymphocytes Absolute Auto 2.06 K/uL (0.90-2.90); Lymphocytes Percent Auto 28.8 % (20-44); Mean Corpuscular HGB Conc 33 gm/dL (32-36); Mean Corpuscular Hemoglobin 30 pg (26-34); Mean Corpuscular Volume 90 fL (80-100); Monocytes Percent Auto 9.2 % (0.0-11.0); Neutrophils Absolute Auto 4.25 K/uL (1.7-7.0); Neutrophils Percent Auto 59.4 % (42.0-72.0); Platelet Count* 502 K/uL (140-440); RDW Coefficient of Variation % 13.9 % (11.5-15.5); Red Blood Count 3.73 m/uL (4.00-5.20); White Blood Count* 7.15 K/uL (4.50-11.00)
[2023-10-13 01:33] LABS: Slide Review Reflex No
[2023-10-13 01:45] LABS: Chloride* 96 mmol/L (96-114); Potassium* 4.2 mmol/L (3.6-5.1); Sodium* 125 mmol/L (135-149)
[2023-10-13 01:48] LABS: Creatinine* 0.5 mg/dL (0.5-1.5); Est. Creatinine Clearance* 31.49; Estimated Glomerular Filt Rate 95 ml/min
[2023-10-13 01:49] LABS: Anion Gap 7 mEq/L (7-15); Blood Urea Nitrogen* 19 mg/dL (7-30); Calcium* 9.2 mg/dL (8.4-10.6); Carbon Dioxide* 22 mmol/L (20-32); Glucose* 114 mg/dL (60-115)
[2023-10-13 01:52] LABS: C Reactive Protein* < 0.5 mg/dL (0.5-1.0)
== END 2023-10-13 03:08 | disposition home or self-care (01) ==
PROVIDERS: Emergency Provider Family Medicine; PCP Family Medicine
DX: M54.16 Radiculopathy, lumbar region (principal)
CPT/HCPCS: 36415; 80048; 85025; 86140; 99283; 99284; A9270; J7512

== ENCOUNTER 2023-10-31 10:09 | Emergency (ER) | payer OTHER, SELFPAY ==
[2023-10-31] VITALS (7 sets, daily range): BP systolic 223; BP diastolic 95; PULSE 85–113; RESP 18; TEMP 36.9; O2SAT 97–100
--- NOTE | 2023-10-31 11:17 | ED.BACK ---
HPI - Back Pain/Injury General Chief Complaint: Back Injury/Pain Stated Complaint: back pain Time Seen by Provider: 10/31/23 10:56 History of Present Illness HPI Narrative: This 78-year-old female comes in with her by ambulance because of uncontrolled low back pain. She has a history of chronic back pain and has had an MRI done recently. She is taking gabapentin, Tylenol, and occasionally takes tramadol if needed. She did take 1 tramadol tablet this morning but comes in because her pain was more than she could handle. She is able to get up and ambulate if her pain is managed well enough. She does have a history of compression fractures in her low back. She has an appointment with Dr. Rothman in the spine clinic in 4 days. Related Data Home Medications Medication Instructions Recorded Confirmed acetaminophen 325 mg tablet 650 mg PO Q6H PRN 01/20/22 05/12/22 (Tylenol) alendronate 70 mg tablet 70 mg PO QWEEK 01/20/22 05/12/22 atorvastatin 40 mg tablet 40 mg PO QPM 01/20/22 05/12/22 clonidine HCl 0.1 mg tablet 0.1 mg PO DAILY 01/20/22 05/12/22 lisinopril 40 mg tablet 40 mg PO QDAY 01/20/22 05/12/22 Previous Rx's Medication Instructions Recorded gabapentin 300 mg capsule 300 mg PO QHS #30 caps 10/13/23 prednisone 10 mg tablet 10 mg PO DIRECTED #30 tabs 10/13/23 tramadol 50 mg tablet 50 mg PO TID PRN pain #10 tabs 10/13/23 hydrocodone 5 mg-acetaminophen 325 1 tab PO Q4-6H PRN pain #15 tabs 10/31/23 mg tablet Allergies Allergy/AdvReac Type Severity Reaction Status Date / Time hydrochlorothiazide Allergy Verified 05/23/23 14:15 mirtazapine Allergy Verified 06/07/23 10:47 seasonal AdvReac Mild Uncoded 01/25/23 11:07 Review of Systems Status of ROS: Reports: 10 or more systems reviewed and unremarkable except as noted in History and below Narrative: Constitutional: No fevers, no weight gain or loss. Eyes: No discharge. No vision changes. HENT: No congestion, no sore throat, no ear pain. Cardiovascular: No chest pain, no palpitations. Respiratory: No shortness of breath, no wheezes, no cough. Gastrointestinal: No abdominal pain, no vomiting, no diarrhea. Genitourinary: No dysuria, no hematuria. Musculoskeletal: Chronic low back pain radiating down both legs. Skin: No rashes, no pruritis. Neurological: No dizziness, weakness, sensory change, speech change. Endo/Heme/Allergies: No bruising or bleeding. No polydipsia. Pysch: no suicidality, no anxiety, no insomnia. All other systems reviewed and are negative. [facility] Medical History Osteoporosis ?M81.0 - Age-related osteoporosis without current pathological fracture (ICD-10) HTN (hypertension) ?I10 - Essential (primary) hypertension (ICD-10) Invasive ductal carcinoma of left breast in female (~04/2017) ?C50.912 - Malignant neoplasm of unspecified site of left female breast (ICD-10) Surgical History S/P lumpectomy, left breast ?Z98.890 - Other specified postprocedural states (ICD-10) Social History Smoking Status: Never smoker How often do you have a drink containing alcohol: never AUDIT-C Alcohol total score: 0 Non-prescribed substance use: denies use Exam Narrative: Exam Narrative: Constitutional: Well-developed, well-nourished, no acute distress. HEENT: Normocephalic, atraumatic. Neck: Normal range of motion. Nontender. Supple. Heart: Intact distal pulses. Lungs: No chest discomfort. No wheezes, rhonchi, or rales. Abdomen: Nontender. Back: Chronic low back pain which she reports is radiating down both legs. History of compression fractures. Extremities: Normal range of motion. No injury. Skin: Intact. No rash. Warm. No erythema or pallor. Neurologic: No altered sensation. No weakness. Alert and oriented. Psychiatric: No suicidality. No anxiety or depression. No insomnia. Nursing notes and vitals signs are reviewed. Const: Vital Signs, click to edit/add: Vital Signs - 24 hr 10/31/23 10:20 Temperature 98.4 F Pulse Rate [Pulse Oximeter] 96 Respiratory Rate 18 Blood Pressure [Ri ght Upper Arm] 223/95 H Pulse Oximetry 97 Oxygen Delivery Me thod Room Air Course Vital Signs Vital signs: Initial Vital Signs Temperature 98.4 F 10/31/23 10:20 Temperature Source Temporal Artery Scan 10/31/23 10:20 Pulse Rate 96 10/31/23 10:20 Pulse Rhythm Regular 10/31/23 10:20 Respiratory Rate 18 10/31/23 10:20 Blood Pressure 223/95 H 10/31/23 10:20 Blood Pressure Mean 137 H 10/31/23 10:20 Blood Pressure Position Supine 10/31/23 10:20 Pulse Oximetry 97 10/31/23 10:20 Oxygen Delivery Method Room Air 10/31/23 10:20 Vital Signs Temperature 98.4 F 10/31/23 10:20 Pulse Rate 96 10/31/23 10:20 Respiratory Rate 18 10/31/23 10:20 Blood Pressure 223/95 H 10/31/23 10:20 Pulse Oximetry 97 10/31/23 10:20 Oxygen Delivery Method Room Air 10/31/23 10:20 Temperature 98.4 F 10/31/23 10:20 Pulse Rate 96 10/31/23 10:20 Respiratory Rate 18 10/31/23 10:20 Blood Pressure 223/95 H 10/31/23 10:20 Pulse Oximetry 97 10/31/23 10:20 Oxygen Delivery Method Room Air 10/31/23 10:20 MDM - Back Pain/Injury MDM Narrative Medical decision making narrative: This patient comes in with chronic back pain that she states was not well enough controlled with her regular medicines. She does not report any injury event. There is no recent fall or strenuous activity. She is taking gabapentin 100 mg at night and Tylenol. She does have a few tablets of tramadol that she takes sparingly. She was seen a few weeks ago here for similar complaints and I did review the notes from that visit. Today the patient received an intramuscular injection of morphine 6 mg. I did also prescribe some [place] tablets with instructions to use these as needed for additional pain relief then report results and follow-up as scheduled with Dr. Rothman in the spine clinic. I explained that narcotic medications are not a good long-term plan for pain management usually. Discharge Plan Discharge Clinical Impression: Chronic back pain Patient Disposition: Home w/ Parent or Adult Condition: Stable Additional Instructions: Continue with gabapentin and Tylenol as indicated and prescribed. It is okay to take tramadol every 4-6 hours as needed. Additionally [place] can be used for pain relief but understand that this also contains Tylenol. Follow-up with spine clinic in 4 days as scheduled. Return if worsening. Prescriptions: New hydrocodone-acetaminophen 5-325 mg tablet 1 tab PO Q4-6H PRN (Reason: pain) Qty: 15 0RF No Action atorvastatin 40 mg tablet 40 mg PO QPM clonidine HCl 0.1 mg tablet 0.1 mg PO DAILY acetaminophen [Tylenol] 325 mg tablet 650 mg PO Q6H PRN lisinopril 40 mg tablet 40 mg PO QDAY alendronate 70 mg tablet 70 mg PO QWEEK prednisone 10 mg tablet 10 mg PO DIRECTED Qty: 30 0RF Rx Instructions: Three pills by mouth daily with food for 5 days, then 2 pills by mouth daily for 5 days, then 1 pill daily till gone tramadol 50 mg tablet 50 mg PO TID PRN (Reason: pain) Qty: 10 0RF gabapentin 300 mg capsule 300 mg PO QHS Qty: 30 2RF Follow Up/Referrals: Mathew Camara MD [Primary Care Provider] - Stand Alone Forms: [employer] Info Instructions
[2023-10-31] MEDS: MORPHINE 10 MG/ML inj 6 MG IM (12:10)
== END 2023-10-31 12:30 | disposition home or self-care (01) ==
LOC: ED 11:26
PROVIDERS: Emergency Provider Emergency Medicine Emergency Medical Services; PCP Family Medicine
DX: M54.50 Low back pain, unspecified (principal); G89.29 Other chronic pain
CPT/HCPCS: 96372; 99284; J2270

== ENCOUNTER 2023-11-17 13:15 | Outpatient (RCR) | payer OTHER, SELFPAY | END 2024-03-16 23:59 | disposition home or self-care (01) | PROVIDERS: PCP Family Medicine; Visit Provider Family Medicine | DX: M54.16 Radiculopathy, lumbar region (principal); M47.816 Spondylosis without myelopathy or radiculopathy, lumbar region; Z51.89 Encounter for other specified aftercare; M48.061 Spinal stenosis, lumbar region without neurogenic claudication; M51.36 Other intervertebral disc degeneration, lumbar region | CPT/HCPCS: 97110; 97162 ==

== ENCOUNTER 2023-12-30 20:24 | Outpatient (CLI) | payer OTHER, SELFPAY | END 2023-12-30 20:25 | disposition home or self-care (01) | LOC: AMB 01-02 19:49 | PROVIDERS: PCP Family Medicine; Visit Provider Emergency Medicine Emergency Medical Services | DX: R53.1 Weakness (principal) | CPT/HCPCS: A0425; A0427 ==

== ENCOUNTER 2023-12-30 21:01 | Emergency (ER) | payer OTHER, SELFPAY ==
[2023-12-30 21:07] VITALS: BP 194/100; PULSE 89; RESP 20; TEMP 37.7; O2SAT 98
--- NOTE | 2023-12-30 21:30 | ED.GENADULT ---
HPI - General Adult General Chief complaint: Weakness Stated complaint: Weakness Time Seen by Provider: 12/30/23 21:11 History of Present Illness HPI narrative: This 78-year-old female comes in reporting chronic low back pain radiating down her legs. She does have a lumbar radiculopathy and has been taking tramadol and hydrocodone for the past 3 months at least. Her primary a spine doctor has recently had her cut back from using hydrocodone and switching more toward tramadol. The patient reports weakness but states that she is able to get up and walk. She does not have any unilateral weakness. She has not had any recent injury event. She also reports some nausea but no report of vomiting. Her nausea symptoms began about a day ago. Related Data Home Medications ?Medication ?Instructions ?Recorded ?Confirmed acetaminophen 325 mg tablet 650 mg PO Q6H PRN 01/20/22 05/12/22 (Tylenol) alendronate 70 mg tablet 70 mg PO QWEEK 01/20/22 05/12/22 atorvastatin 40 mg tablet 40 mg PO QPM 01/20/22 05/12/22 clonidine HCl 0.1 mg tablet 0.1 mg PO DAILY 01/20/22 05/12/22 lisinopril 40 mg tablet 40 mg PO QDAY 01/20/22 05/12/22 Previous Rx's ?Medication ?Instructions ?Recorded gabapentin 300 mg capsule 300 mg PO QHS #30 caps 10/13/23 prednisone 10 mg tablet 10 mg PO DIRECTED #30 tabs 10/13/23 tramadol 50 mg tablet 50 mg PO TID PRN pain #10 tabs 10/13/23 hydrocodone 5 mg-acetaminophen 325 1 tab PO Q4-6H PRN pain #15 tabs 10/31/23 mg tablet Allergies Allergy/AdvReac Type Severity Reaction Status Date / Time hydrochlorothiazide Allergy Verified 12/30/23 21:06 mirtazapine Allergy Verified 12/30/23 21:06 seasonal AdvReac Mild Uncoded 01/25/23 11:07 Review of Systems Status of ROS: Reports: 10 or more systems reviewed and unremarkable except as noted in History and below Narrative: Constitutional: No fevers, no weight gain or loss. Eyes: No discharge. No vision changes. HENT: No congestion, no sore throat, no ear pain. Cardiovascular: No chest pain, no palpitations. Respiratory: No shortness of breath, no wheezes, no cough. Gastrointestinal: No abdominal pain, no vomiting, no diarrhea. Genitourinary: No dysuria, no hematuria. Musculoskeletal: Normal range of motion. Chronic low back pain from lumbar radiculopathy and degenerative disease. Skin: No rashes, no pruritis. Neurological: No dizziness, weakness, sensory change, speech change. Endo/Heme/Allergies: No bruising or bleeding. No polydipsia. Pysch: no suicidality, no anxiety, no insomnia. All other systems reviewed and are negative. [facility] Medical History Osteoporosis ?M81.0 - Age-related osteoporosis without current pathological fracture (ICD-10) HTN (hypertension) ?I10 - Essential (primary) hypertension (ICD-10) Invasive ductal carcinoma of left breast in female (~04/2017) ?C50.912 - Malignant neoplasm of unspecified site of left female breast (ICD-10) Surgical History S/P lumpectomy, left breast ?Z98.890 - Other specified postprocedural states (ICD-10) Social History Smoking Status: Never smoker How often do you have a drink containing alcohol: never AUDIT-C Alcohol total score: 0 Non-prescribed substance use: denies use Exam Narrative: Exam Narrative: Constitutional: Well-developed, well-nourished. HEENT: Normocephalic, atraumatic. Neck: Normal range of motion. Nontender. Supple. Heart: Regular. No murmurs. Normal rate. Intact distal pulses. Lungs: Clear to auscultation. No chest discomfort. No wheezes, rhonchi, or rales. Abdomen: Normal bowel sounds. Nontender. No rebound tenderness. Genitalia: Deferred. Extremities: Normal range of motion. No injury. Skin: Intact. No rash. Warm. No erythema or pallor. Neurologic: No altered sensation. No weakness. Alert and oriented. Psychiatric: No suicidality. No anxiety or depression. No insomnia. Nursing notes and vitals signs are reviewed. Const: Vital Signs, click to edit/add: Vital Signs - 24 hr 12/30/23 21:07 Temperature 99.8 F H Pulse Rate [Pulse Oximeter] 89 Respiratory Rate 20 Blood Pressure [Ri t Upper Arm] 194/100 H Pulse Oximetry 98 Oxygen Delivery Me thod Room Air Course Vital Signs Vital signs: Initial Vital Signs Temperature 99.8 F H 12/30/23 21:07 Temperature Source Temporal Artery Scan 12/30/23 21:07 Pulse Rate 89 12/30/23 21:07 Pulse Rhythm Regular 12/30/23 21:07 Pulse Strength 3+ Normal 12/30/23 21:07 Respiratory Rate 20 12/30/23 21:07 Blood Pressure 194/100 H 12/30/23 21:07 Blood Pressure Mean 131 H 12/30/23 21:07 Blood Pressure Position Sitting 12/30/23 21:07 Pulse Oximetry 98 12/30/23 21:07 Oxygen Delivery Method Room Air 12/30/23 21:07 Vital Signs Temperature 99.8 F H 12/30/23 21:07 Pulse Rate 89 12/30/23 21:07 Respiratory Rate 20 12/30/23 21:07 Blood Pressure 194/100 H 12/30/23 21:07 Pulse Oximetry 98 12/30/23 21:07 Oxygen Delivery Method Room Air 12/30/23 21:07 Temperature 99.8 F H 12/30/23 21:07 Pulse Rate 89 12/30/23 21:07 Respiratory Rate 20 12/30/23 21:07 Blood Pressure 194/100 H 12/30/23 21:07 Pulse Oximetry 98 12/30/23 21:07 Oxygen Delivery Method Room Air 12/30/23 21:07 Medications Administered Medications: Discontinued Medications Generic Name Dose Route Start Last Admin Trade Name Freq PRN Reason Stop Dose Admin Sodium Chloride 500 mls @ 500 mls/hr 12/30/23 21:28 12/30/23 22:37 0.9 % Sodium Chloride 500 Ml IV 12/30/23 22:27 Infused .Q1H ONE Infusion Ketorolac Tromethamine 15 mg 12/30/23 21:28 12/30/23 21:35 Ketorolac 30 Mg/Ml Inj IVP 12/30/23 21:29 15 mg ONCE ONE Administration Morphine Sulfate 5 mg 12/30/23 22:28 12/30/23 22:41 Morphine 10 Mg/Ml Inj IM 12/30/23 22:29 5 mg ONCE ONE Administration Ondansetron HCl 4 mg 12/30/23 21:28 12/30/23 21:35 Ondansetron 2 Mg/Ml Inj IVP 12/30/23 21:29 4 mg ONCE ONE Administration Medical Decision Making MDM Narrative Medical decision making narrative: This patient has chronic low back pain and has been taking tramadol and hydrocodone until more recently when her doctor prescribed less tablets of hydrocodone stating that he wanted to wean this off of her regular use. She comes in feeling worsening pain and some nausea symptoms. She arrives with normal vital signs. I did discuss lab and imaging options but focused on attempting to help her feel better as this seems to be the primary reason for her visit. The patient did arrive by ambulance an IV was established. I did administer 15 mg of Toradol and 4 mg of Zofran. She states that this medicine did not seemed to help her much for pain. She then received an intramuscular injection of morphine 5 mg and this brought good relief to her pain. I explained that she may have some dependence on opiates with some rebound pain related to that. I stated that it is good for her to wean off of these medicines if possible. She will need to follow-up with her primary physicians for ongoing management of pain. I did provide a prescription from [facility] for Toradol. Lab Data Labs: Lab Results 12/30/23 Range/Units 22:20 Urine Color Yellow (Yellow) Urine Appearance Clear (Clear) Urine pH 7.0 (5.0-8.5) Ur Specific [place] 1.015 (1.000-1.030) Urine Protein Negative (Negative) Urine Glucose (UA) Negative (Negative) Urine Ketones Trace A (Negative) Urine Blood 1+ A (Negative) Urine Nitrite Negative (Negative) Urine Bilirubin Negative (Negative) Urine Urobilinogen 0.2 (0.2-1.0) Ur Leukocyte Esterase Trace A (Negative) Urine RBC 5-10 A (0-2) Urine WBC 0-2 (0-5) Ur Squamous Epith Cells None (None-Few) Urine Bacteria None (None) Discharge Plan Discharge Clinical Impression: Chronic back pain Patient Disposition: Home w/ Parent or Adult Condition: Stable Additional Instructions: Continue current plans and take medications as prescribed. Follow up with primary physician for ongoing management. Prescriptions: No Action atorvastatin 40 mg tablet 40 mg PO QPM clonidine HCl 0.1 mg tablet 0.1 mg PO DAILY acetaminophen [Tylenol] 325 mg tablet 650 mg PO Q6H PRN lisinopril 40 mg tablet 40 mg PO QDAY alendronate 70 mg tablet 70 mg PO QWEEK hydrocodone-acetaminophen 5-325 mg tablet 1 tab PO Q4-6H PRN (Reason: pain) Qty: 15 0RF prednisone 10 mg tablet 10 mg PO DIRECTED Qty: 30 0RF Rx Instructions: Three pills by mouth daily with food for 5 days, then 2 pills by mouth daily for 5 days, then 1 pill daily till gone tramadol 50 mg tablet 50 mg PO TID PRN (Reason: pain) Qty: 10 0RF gabapentin 300 mg capsule 300 mg PO QHS Qty: 30 2RF Follow Up/Referrals: Mathew Camara MD [Primary Care Provider] - Stand Alone Forms: MyHealth Info Instructions
[2023-12-30] MEDS: 0.9 % SODIUM CHLORIDE 500 ML 500 ML IV (21:35)
[2023-12-30] MEDS: KETOROLAC 30 MG/ML inj 15 MG IVP (21:35)
[2023-12-30] MEDS: ONDANSETRON 2 MG/ML inj 4 MG IVP (21:35)
[2023-12-30] MEDS: MORPHINE 10 MG/ML inj 5 MG IM (22:41)
[2023-12-30 22:49] LABS: Appearance Urine Clear (Clear); Bilirubin Urine Negative (Negative); Blood Urine 1+ (Negative); Color Urine Yellow (Yellow); Glucose Urine Negative (Negative); Ketones Urine Trace (Negative); Leukocyte Esterase Urine Trace (Negative); Nitrite Urine Negative (Negative); Protein Urine Negative (Negative); Specific Gravity Urine 1.015 (1.000-1.030); Urobilinogen Urine 0.2 (0.2-1.0)
[2023-12-30 23:01] LABS: WBC Urine 0-2 (0-5)
== END 2023-12-31 00:01 | disposition home or self-care (01) ==
PROVIDERS: Emergency Provider Emergency Medicine Emergency Medical Services; PCP Family Medicine
DX: M54.50 Low back pain, unspecified (principal); R82.5 Elevated urine levels of drugs, medicaments and biological substances
CPT/HCPCS: 81001; 81003; 87086; 99283; 99284; J1885; J2270; J2405; J7030